=== PATIENT | female | born 1990 | race African-American/Black ===

== ENCOUNTER 2022-03-16 11:21 | Emergency (ER) | payer SELFPAY ==
[~2022-03-16] VITALS: Ht 165.1 cm; Wt 145.0 kg
[2022-03-16 11:31] VITALS: BP 113/79
== END 2022-03-16 12:17 ==
LOC: ER 11:21 → EDBD 11:21 → ER 12:17
DX: S00.83XA Contusion of other part of head, initial encounter (principal); Y04.8XXA Assault by other bodily force, initial encounter; Y93.89 Activity, other specified; Y92.89 Other specified places as the place of occurrence of the external cause; Y99.8 Other external cause status